=== PATIENT | female | born 1945 | race Caucasian/White ===

== ENCOUNTER 2021-08-13 14:52 | Emergency (ER) | payer OTHER ==
[~2021-08-13] VITALS: Ht 152.4 cm; Wt 98.4 kg
[2021-08-13] MEDS ORDERED: CEphaleXIN 500 MG CAPSULE PO ONE (15:30)
[2021-08-13] MEDS ORDERED: SULFAMETH/TRIMETH 800/160 MG TABLET PO ONE (15:30)
--- NOTE | 2021-08-13 15:35 | NUR ---
PT IS IN ROOM #1B. DR GARCIA EVALUATED THE PT.
[2021-08-13] MEDS ORDERED: SULFAMETH/TRIMETH 800/160 MG TABLET ONE (15:37)
[2021-08-13] MEDS ORDERED: CEphaleXIN 500 MG CAPSULE ONE (15:37)
--- NOTE | 2021-08-13 17:19 | NUR ---
PT WAS D/C'd TO HOME. D/C INSTRUCTIONS GIVEN TO THE PT BY DR GARCIA.
[2021-08-13 17:20] VITALS: BP 136/79
== END 2021-08-13 17:21 | disposition home or self-care (01) ==
LOC: ER 14:52
DX: I82.812 Embolism and thrombosis of superficial veins of left lower extremity (principal); E78.5 Hyperlipidemia, unspecified; Z86.718 Personal history of other venous thrombosis and embolism; Z79.01 Long term (current) use of anticoagulants; R03.0 Elevated blood-pressure reading, without diagnosis of hypertension
CPT/HCPCS: 76881; A4663